=== PATIENT | male | born 1975 | race Caucasian/White ===

== ENCOUNTER 2017-03-04 12:51 | Day surgery (SDC) | payer OTHER ==
[~2017-03-04 12:51] MED LIST: ATARAX,VISTARIL25 MG PO; CO Q-1010 MG PO; COREG12.5 M1 PO; CYCLOBENZAPRINE10 MG PO; DICLOFENAC SODI75 MG PO; DURAGESIC25 MCG TD; GABAPENTIN100 MG PO; LISINOPRIL10 MG PO; LYRICA100 MG PO; LYRICA200 MG PO; LYRICA75 MG PO; NORVASC10 MG PO; OXYCODONE HCL5 MG PO; TYLENOL ARTHRI650 MG PO; WELLBUTRIN100 MG PO
[2017-03-04] MEDS ORDERED: TIZANIDINE HCL2 M1 PO (13:14)
[2017-03-04] MEDS ORDERED: LEXAPRO10 MG PO (13:17)
[2017-03-04] MEDS ORDERED: IBUPROFEN800 MG PO (13:18)
[2017-03-04] MEDS ORDERED: PERCOCET 7.51 TABLET PO (13:18)
== END 2017-03-04 14:55 | disposition home or self-care (01) ==
LOC: PAIN 12:51 → SDC 13:15 → PAIN 13:15
DX: M47.26 Other spondylosis with radiculopathy, lumbar region (principal); M51.16 Intervertebral disc disorders with radiculopathy, lumbar region; M48.061 Spinal stenosis, lumbar region without neurogenic claudication; F41.0 Panic disorder [episodic paroxysmal anxiety]; I10 Essential (primary) hypertension; Z79.891 Long term (current) use of opiate analgesic
CPT/HCPCS: J1030; J2250; J3010; S0020

== ENCOUNTER 2017-03-19 13:56 | Day surgery (SDC) | payer OTHER ==
[~2017-03-19] VITALS: Ht 180.3 cm; Wt 97.5 kg
[~2017-03-19 13:56] MED LIST changes: +IBUPROFEN800 MG PO; +LEXAPRO10 MG PO; -LYRICA200 MG PO; +PERCOCET 7.51 TABLET PO; +TIZANIDINE HCL2 M1 PO
== END 2017-03-19 15:14 | disposition home or self-care (01) ==
LOC: PAIN 13:56 → SDC 14:45 → PAIN 14:45
DX: M47.26 Other spondylosis with radiculopathy, lumbar region (principal); M51.16 Intervertebral disc disorders with radiculopathy, lumbar region; M48.061 Spinal stenosis, lumbar region without neurogenic claudication; I10 Essential (primary) hypertension; F41.9 Anxiety disorder, unspecified
CPT/HCPCS: J1030; J2250; J3010; S0020

== ENCOUNTER 2017-05-06 12:27 | Day surgery (SDC) | payer OTHER ==
[~2017-05-06] VITALS: Ht 180.3 cm; Wt 97.5 kg
== END 2017-05-06 14:25 | disposition home or self-care (01) ==
LOC: PAIN 12:27 → SDC 13:00 → PAIN 14:25
DX: M47.816 Spondylosis without myelopathy or radiculopathy, lumbar region (principal); M51.26 Other intervertebral disc displacement, lumbar region; M99.83 Other biomechanical lesions of lumbar region; M54.16 Radiculopathy, lumbar region; M43.16 Spondylolisthesis, lumbar region; F41.0 Panic disorder [episodic paroxysmal anxiety]; I10 Essential (primary) hypertension
CPT/HCPCS: J1030; J2250; S0020

== ENCOUNTER 2017-05-13 12:27 | Day surgery (SDC) | payer OTHER ==
[~2017-05-13] VITALS: Ht 180.3 cm; Wt 97.5 kg
== END 2017-05-13 14:35 | disposition home or self-care (01) ==
LOC: PAIN 12:27 → SDC 13:00 → PAIN 13:00
DX: M47.816 Spondylosis without myelopathy or radiculopathy, lumbar region (principal); M51.16 Intervertebral disc disorders with radiculopathy, lumbar region; M43.16 Spondylolisthesis, lumbar region; M48.061 Spinal stenosis, lumbar region without neurogenic claudication; I10 Essential (primary) hypertension; F41.0 Panic disorder [episodic paroxysmal anxiety]; Z79.891 Long term (current) use of opiate analgesic
CPT/HCPCS: J1030; J2250; S0020